=== PATIENT | male | born 1980 | race Caucasian/White ===

== ENCOUNTER 2023-11-11 06:44 | Day surgery (SDC) | payer BC ==
[~2023-11-11] VITALS: Ht 185.4 cm; Wt 96.1 kg
[~2023-11-11 06:44] MED LIST: DURICEF PO; LORTAB 5/500 501 TAB PO; LR 1,000 ML IV SCH; NO HOME MEDICATIONS; Ondansetron 4 MG/2 ML VIAL IV PRN
[2023-11-11] MEDS ORDERED: PROBIOTIC BLEN1 EACH PO (07:18)
[2023-11-11 07:29] VITALS: BP 140/76; PULSE 64; TEMP 97.2
[2023-11-11] MEDS ORDERED: fentaNYL 50 MCG/ML 2 ML VIAL ONE (07:40)
[2023-11-11] MEDS ORDERED: Lidocaine PF 2% (20 MG/ML) 5 ML VIAL ONE (07:40)
[2023-11-11 09:25] VITALS: BP 108/65; PULSE 55
[2023-11-11 09:40] VITALS: BP 106/65; PULSE 52; TEMP 97.3
[2023-11-11 09:55] VITALS: BP 118/69; PULSE 51
--- NOTE | 2023-11-11 10:27 | NUR ---
0925- PT RETURNS TO GI AY 2 FROM COLONOSCOPY PROCEDURE. HELPED TO RECLINER WITH RN ASSIST. VS OBTAINED. DENIES PAIN OR NAUSEA, STATES HE FEELS TIRED STILL. REQUESTING WATER. 0940- PT MORE ALERT. TOLERATING FOOD AND DRINK. 0956- DISCONTINUED IV PER ORDER. DR. PALMA TALKED WITH PATIENT AND PT OKAY TO DISCHARGE. 1005- DISCHARGE TEACHING DONE WITH PT. ANSWERED ALL QUESTIONS IN FULL. PT CALLED SPOUSE TO PICK HIM UP. 1018- PT DISCHARGED FROM HOSPITAL VIA WHEELCHAIR TO PRIVATE VEHICLE DRIVEN BY SPOUSE.
== END 2023-11-11 10:18 ==
LOC: SDCO 06:44
DX: Z12.11 Encounter for screening for malignant neoplasm of colon (principal); M25.60 Stiffness of unspecified joint, not elsewhere classified; E66.9 Obesity, unspecified; R01.1 Cardiac murmur, unspecified; R21 Rash and other nonspecific skin eruption; Z68.27 Body mass index [BMI] 27.0-27.9, adult; Z82.49 Family history of ischemic heart disease and other diseases of the circulatory system; Z83.719 Family history of colon polyps, unspecified
CPT/HCPCS: J2704; J3010; J7120